=== PATIENT | male | born 1995 | race Caucasian/White ===

== ENCOUNTER 2022-10-13 20:47 | Inpatient (IN) | payer MEDICAID, OTHER ==
[~2022-10-13] VITALS: Ht 180.3 cm; Wt 68.8 kg
[2022-10-13 22:10] LABS: Basophils # (auto) 0.1 10 ^3/uL (0-0.2); Basophils % (auto) 0.6 % (0.0-2.0); Eosinophils # (auto) 0.1 10 ^3/uL (0-0.8); Eosinophils % (auto) 0.7 % (0.0-7.0); Hematocrit 48.5 % (41.0-53.0); Hemoglobin 17.1 g/dL (13.5-17.5); Lymphocytes # (auto) 1.9 10 ^3/uL (0.4-5.4); Lymphocytes % (auto) 17.6 % (10.0-50.0); Mean Corpuscular Hemoglobin 33.6 pg (28.0-32.0); Mean Corpuscular Hgb Conc. 35.2 g/dL (32.0-36.0); Mean Corpuscular Volume 95.5 fL (80.0-100.0); Monocytes # (auto) 0.7 10 ^3/uL (0-1.3); Neutrophils # (auto) 7.8 10 ^3/uL (1.6-8.6); Neutrophils % (auto) 74.1 % (37.0-80.0); Nucleated Red Blood Cells % 0.5 %; Red Blood Cells 5.07 10^6/uL (4.5-5.90); Red Cell Distribution Width 13.2 % (11.8-14.3); White Blood Cell 10.6 10^3/uL (4.4-10.8)
[2022-10-13 22:26] LABS: Urine Amorphous Crystal FEW /hpf (None Seen); Urine Bacteria FEW /hpf (None Seen); Urine Blood 3+ /uL (Negative); Urine Clarity HAZY (Clear); Urine Color Yellow (Yellow); Urine Mucus FEW (None Seen); Urine Protein, UAD 1+ (Negative); Urine Specific Gravity 1.019 (1.001-1.035); Urine WBC 15 /hpf (0 - 3); Urine pH 6.5 (5.0-8.0)
[2022-10-13 22:28] LABS: Alanine Aminotransferase 15 U/L (7-40); Albumin 5.1 g/dL (3.2-4.8); Alkaline Phosphatase 98 U/L (46-116); Anion Gap 7.6 (5-15); Aspartate Aminotransferase 13 U/L (13-40); BUN/Creatinine Ratio 10.1 (10.0-20.0); Bilirubin, Total 0.8 mg/dL (0.2-1.0); Blood Urea Nitrogen 9 mg/dL (9-23); Carbon Dioxide 28.4 mmol/L (20-30); Chloride 103 mmol/L (98-107); Glucose 129 mg/dL (74-106); Lipase 39 U/L (12-53); Potassium 4.1 mmol/L (3.5-5.1); Sodium 139 mmol/L (136-145)
[2022-10-14] MEDS ORDERED: ONDANSETRON HCL 4 MG/2 ML VIAL IV ONE
[2022-10-14] MEDS ORDERED: SODIUM CHLORIDE 0.9% 1,000 ML IV ONE
[2022-10-14] MEDS ORDERED: CEFTRIAXONE SODIUM 2 GM in D5W 5% 100 ML IV ONE ×2
[2022-10-14] MEDS ORDERED: MORPHINE SULFATE 4 MG/ML SYR/VIAL IV ONE
[2022-10-14 02:00] VITALS: PULSE 66; RESP 14; O2SAT 99
[2022-10-14] MEDS ORDERED: cefTRIAXone SOD 1,000 MG VL ONE (02:04)
[2022-10-14 03:00] VITALS: PULSE 70; RESP 18; O2SAT 94
[2022-10-14] MEDS ORDERED: ACETAMINOPHEN 325 MG TAB PO PRN (04:15)
[2022-10-14] MEDS ORDERED: HYDROcodone-ACET 5/325MG TAB PO PRN (04:15)
[2022-10-14] MEDS ORDERED: ONDANSETRON HCL 4 MG/2 ML VIAL IV PRN (04:15)
[2022-10-14] MEDS ORDERED: MORPHINE SULFATE INJ 2 MG/ml SYRG IV PRN (04:15)
[2022-10-14] MEDS: PANTOPRAZOLE 40 MG TAB PO SCH (09:50)
[2022-10-14] MEDS ORDERED: TAMSULOSIN HYDROCHLORIDE 0.4 MG CAP PO ONE (10:30)
[2022-10-14] MEDS: SODIUM CHLORIDE 0.9% 1,000 ML IV SCH ×3 (11:07→23:50)
[2022-10-14 22:43] VITALS: BP 121/83; PULSE 71; RESP 18; TEMP 98.8; O2SAT 96
[2022-10-15] MEDS ORDERED: cefTRIAXone 1GM/50ML D5W 50 ML IV SCH (02:00)
[2022-10-15 05:00] VITALS: BP 126/68; PULSE 64; RESP 16; TEMP 97.7; O2SAT 98
[2022-10-15 06:04] LABS: Basophils # (auto) 0 10 ^3/uL (0-0.2); Basophils % (auto) 0.6 % (0.0-2.0); Eosinophils # (auto) 0.1 10 ^3/uL (0-0.8); Eosinophils % (auto) 2.3 % (0.0-7.0); Hematocrit 45.1 % (41.0-53.0); Hemoglobin 15.6 g/dL (13.5-17.5); Lymphocytes # (auto) 2.2 10 ^3/uL (0.4-5.4); Lymphocytes % (auto) 41.4 % (10.0-50.0); Mean Corpuscular Hemoglobin 33.6 pg (28.0-32.0); Mean Corpuscular Hgb Conc. 34.6 g/dL (32.0-36.0); Mean Corpuscular Volume 97.1 fL (80.0-100.0); Monocytes # (auto) 0.3 10 ^3/uL (0-1.3); Monocytes % (auto) 6.5 % (0.0-12.0); Neutrophils # (auto) 2.6 10 ^3/uL (1.6-8.6); Neutrophils % (auto) 49.2 % (37.0-80.0); Nucleated Red Blood Cells % 0.1 %; Red Blood Cells 4.64 10^6/uL (4.5-5.90); Red Cell Distribution Width 13.3 % (11.8-14.3); White Blood Cell 5.3 10^3/uL (4.4-10.8)
[2022-10-15 06:10] LABS: Anion Gap 5.4 (5-15); Carbon Dioxide 27.6 mmol/L (20-30); Chloride 107 mmol/L (98-107); Potassium 4.3 mmol/L (3.5-5.1); Sodium 140 mmol/L (136-145)
[2022-10-15 06:11] LABS: Calcium 8.9 mg/dL (8.7-10.4)
[2022-10-15 06:15] LABS: Glucose 89 mg/dL (74-106)
[2022-10-15] MEDS: SODIUM CHLORIDE 0.9% 1,000 ML IV SCH ×2 (06:51→10:34)
[2022-10-15 07:43] LABS: BUN/Creatinine Ratio 16.5 (10.0-20.0); Blood Urea Nitrogen 13 mg/dL (9-23)
[2022-10-15 09:00] VITALS: BP 119/82; PULSE 63; RESP 18; TEMP 97.5; O2SAT 98
[2022-10-15] MEDS ORDERED: MANNITOL FTV 25% 12.5 GM/50 ML 50 ML IV ONE (09:45)
[2022-10-15] MEDS: PANTOPRAZOLE 40 MG TAB PO SCH (10:33)
[2022-10-15] MEDS ORDERED: NITR-87 PO (12:27)
[2022-10-15] MEDS ORDERED: TAMS-35 PO (12:27)
[2022-10-15 13:00] VITALS: BP 136/73; PULSE 82; RESP 19; TEMP 97.9; O2SAT 90
[2022-10-15] MEDS ORDERED: TAMSULOSIN HYDROCHLORIDE 0.4 MG CAP PO SCH (18:00)
== END 2022-10-15 15:00 | disposition home or self-care (01) | DRG 463 ==
LOC: ER 20:47 → OVERFLOW 10-14 04:18 → WEST WING 10-14 22:26
PROVIDERS: ADMIT Nurse Practitioner; ATTEND Nurse Practitioner Acute Care
DX: N13.6 Pyonephrosis (principal); E11.9 Type 2 diabetes mellitus without complications; F17.200 Nicotine dependence, unspecified, uncomplicated; Z88.8 Allergy status to other drugs, medicaments and biological substances; Z79.899 Other long term (current) drug therapy
CPT/HCPCS: 36415; 74176; 80048; 80053; 81001; 83690; 85025; 96361; 96365; G0378; J0696

== ENCOUNTER 2025-02-08 01:53 | Emergency (ER) | payer MEDICAID ==
[~2025-02-08] VITALS: Ht 180.3 cm; Wt 68.1 kg
[~2025-02-08 01:53] MED LIST: NITR-87 PO; TAMS-35 PO
[2025-02-08 02:00] VITALS: BP 130/98; PULSE 113; RESP 16; TEMP 98.4; O2SAT 97
--- NOTE | 2025-02-08 02:22 | ED.PDOC ---
History of Present Illness HPI Comments 29 year-old male presents to the ED via wheelchair for multiple abrasions to the body S/P falling into cactus minutes ago. Patient was brought into the ED by his mother. Patient presents with heavy ingestion of ETOH, no further symptoms at this time. REVIEW OF SYSTEMS: General: + ETOH intoxification. No fever, no chills, or fatigue HEENT: No sore throat, no earache, no congestion, no neck pain. Cardiac: No chest pain. No palpitations. Lungs: No shortness of breath, no cough. GI: No nausea, no vomiting, no diarrhea, no constipation, no abdominal pain : No dysuria, frequency, or urgency. No hematuria. Musculoskeletal: No joint pain , no joint swelling, no extremity edema. Skin: No rash, no itching. Neuro: No headache, no dizziness, no weakness (And as sated in HPI) PHYSICAL EXAM: General: Awake, alert and oriented. No acute distress. Skin: + cactus spines to the abdomen, back, bilateral lower extremities, bilateral upper extremities. Skin in warm, dry and intact. Appropriate color for ethnicity. HEENT: The head is normocephalic and atraumatic. Conjunctivae are clear without exudates or hemorrhage. Sclera is non-icteric. Eyelids are normal in appearance without swelling or lesions. Oral mucosa is pink and moist Neck: The neck is supple with normal range of motion. No JVD. Cardiac: Heart rate and rhythm are normal. No murmurs, gallops, or rubs are auscultated. Respiratory: No signs of respiratory distress. Lung sounds are clear in all lobes bilaterally without rales, rhonchi, or wheezes. Abdominal: Abdomen is soft, non-tender without distention, guarding or rigidity. Bowel sounds are present and normoactive in all four quadrants. Extremities: Lower extremities without edema. Neurological: The patient is awake, alert and oriented to person, place, and time with normal speech. Speech is clear. There is no facial asymmetry. Psychiatric: Appropriate mood and affect. Good judgement and insight. Chief Complaint: ETOH Time Seen by MD: 02:05 Reviewed Notes: Medications, Allergies Allergies: Coded Allergies: Naproxen (Verified Allergy, Unknown, 10/13/22) Penicillins (Verified Allergy, Unknown, 02/08/25) Home Meds Active Scripts Nitrofurantoin Monohydrate Mac (Macrobid) 100 Mg Cap, 100 MG PO BID for 5 Days, #10 CAP Prov:[facility] PRO[employer] 10/15/22 Tamsulosin Hcl (Flomax) 0.4 Mg Cap, 1 CAP PO DAILY, #7 CAP 11 Refills Prov:CAION[facility] [employer] 10/15/22 Information Source: Patient Mode of Arrival: Ambulatory Severity: Moderate Timing: Minutes Duration: Since onset Past Medical History PAST MEDICAL HISTORY: Denies Surgical History: Denies all surgeries Social History Smoker: Unknown Alcohol: Heavy Drugs: Unknown Lives In: Home Was a procedure done? Was a procedure done?: No Differential Dx Considerations may include: Puncture wound, abrasion, cellulitis, contact dermatitis X-Ray, Labs, Meds, VS Vital Signs Date Time Temp Pulse Resp B/P (MAP) Pulse Ox O2 Delivery O2 Flow Rate FiO2 02/08/25 02:00 98.4 113 16 130/98 97 98.4 Lab Test 02/08/25 02:17 Range/Units White Blood Count 11.4 H 4.4-10.8 10^3/uL Red Blood Count 5.42 4.5-5.90 10^6/uL Hemoglobin 17.8 H 13.5-17.5 g/dL Hematocrit 51.4 41.0-53.0 % Mean Corpuscular Volume 94.8 80.0-100.0 fL Mean Corpuscular Hemoglobin 32.8 H 28.0-32.0 pg Mean Corpuscular Hemoglobin Concent 34.6 32.0-36.0 g/dL Red Cell Distribution Width 13.6 11.8-14.3 % Platelet Count 190 140-450 10^3/uL Mean Platelet Volume 7.6 6.9-10.8 fL Neutrophils (%) (Auto) 63.8 37.0-80.0 % Lymphocytes (%) (Auto) 26.3 10.0-50.0 % Monocytes (%) (Auto) 6.8 0.0-12.0 % Eosinophils (%) (Auto) 2.6 0.0-7.0 % Basophils (%) (Auto) 0.5 0.0-2.0 % Neutrophils # (Auto) 7.2 1.6-8.6 10 ^3/uL Lymphocytes # (Auto) 3.0 0.4-5.4 10 ^3/uL Monocytes # (Auto) 0.8 0-1.3 10 ^3/uL Eosinophils # (Auto) 0.3 0-0.8 10 ^3/uL Basophils # (Auto) 0.1 0-0.2 10 ^3/uL Nucleated Red Blood Cells 0.1 % Sodium Level 147 H 136-145 mmol/L Potassium Level 3.2 L 3.5-5.1 mmol/L Chloride Level 114 H 98-107 mmol/L Carbon Dioxide Level 23 20-31 mmol/L Anion Gap 10 5-15 Blood Urea Nitrogen 8 L 9-23 mg/dL Creatinine 0.79 0.700-1.30 mg/dL Glomerular Filtration Rate Calc 123 >90 mL/min BUN/Creatinine Ratio 10.1 10.0-20.0 Serum Glucose 132 H 74-106 mg/dL Calcium Level 9.2 8.7-10.4 mg/dL Plasma/Serum Blood Alcohol 421.3 *H <10 mg/dL SEPSIS Sepsis Screen Date sepsis recognized/suspect: Feb 08, 2025 Time Sepsis recognized/suspect: 020 Recent Procedure: No On Antibiotic Therapy: No Respiratory Rate >20: No Heart Rate >90: Yes Temp<36 C (96.8 F) or >38.3 C: No SBP <90 or MAP <65 mmHG: No New Acute Mental Status Change: No Is the patient on CPAP, BIPAP,: No Vital Signs Date Time Temp Pulse Resp B/P (MAP) Pulse Ox O2 Delivery O2 Flow Rate FiO2 02/08/25 02:00 98.4 113 16 130/98 97 98.4 Laboratory Tests Test 02/08/25 02:17 White Blood Count 11.4 10^3/uL (4.4-10.8) H Departure 1 Departure Time of Disposition: 05:12 Impression: Primary Impression: Alcohol intoxication Additional Impressions: Doss dermatitis Abrasion Disposition: HOME / SELF CARE / HOMELESS Condition: Stable Additional Instructions: ED DISCHARGE INSTRUCTIONS Instructions: Please read all instructions provided in this packet carefully. Although you have been discharged from the Emergency Department, this does not mean that you have a "clean bill of health". No definitive diagnosis for your symptoms has been made today. It is possible that you are in the process of developing a serious illness. This is why you must return to the ED without fail if any new or worsening symptoms (especially if your symptoms include severe pain, redness or itching of the skin, chest pain, trouble breathing, abdominal pain, fever, headache, confusion, trouble seeing, or trouble walking) It is also very important that you see a primary care provider (PCP) within the next 3 days to follow up. If you are unable to get an appointment, return to the ED for re-evaluation of your skin within 3 days. Scrapes (Abrasions): Care Instructions Scrapes (abrasions) are wounds where your skin has been rubbed or torn off. Most scrapes do not go deep into the skin, but some may remove several layers of skin. Scrapes usually don't bleed much, but they may ooze pinkish fluid. Scrapes on the head or face may appear worse than they are. They may bleed a lot because of the good blood supply to this area. Most scrapes heal well and may not need a bandage. They usually heal within 3 to 7 days. A large, deep scrape may take 1 to 2 weeks or longer to heal. A scab may form on some scrapes. Follow-up care is a navarro part of your treatment and safety. Be sure to make and go to all appointments, and call your doctor if you are having problems. It's also a good idea to know your test results and keep a list of the medicines you take. How can you care for yourself at home? If your doctor told you how to care for your wound, follow your doctor's instructions. If you did not get instructions, follow this general advice: Wash the scrape with clean water 2 times a day. Don't use hydrogen peroxide or alcohol, which can slow healing. You may cover the scrape with a thin layer of petroleum jelly, such as Vaseline, and a nonstick bandage. Apply more petroleum jelly and replace the bandage as needed. Prop up the injured area on a pillow anytime you sit or lie down during the next 3 days. Try to keep it above the level of your heart. This will help reduce swelling. Be safe with medicines. Take pain medicines exactly as directed. If the doctor gave you a prescription medicine for pain, take it as prescribed. If you are not taking a prescription pain medicine, ask your doctor if you can take an [id number] medicine. When should you call for help? Call your doctor now or seek immediate medical care if: You have signs of infection, such as: Increased pain, swelling, warmth, or redness around the scrape. Red streaks leading from the scrape. Pus draining from the scrape. A fever. The scrape starts to bleed, and blood soaks through the bandage. Oozing small amounts of blood is normal. Watch closely for changes in your health, and be sure to contact your doctor if the scrape is not getting better each day. Credits for Scrapes (Abrasions): Care Instructions Current as of: November 17, 2024 Author: [employer] Staff Clinical Review Board All [employer] education is reviewed by a team that includes physicians, nurses, advanced practitioners, registered dieticians, and other healthcare professionals. e-Prescriptions Bacitracin Zinc (Bacitracin) 500 Unit/Gm Oin 500 UNIT EX BID for 7 Days, #14 OIN Prov: JAZMINE REMY MD 02/08/25 Comments 29-year-old male who presents to the emergency department with multiple cactus spines imbedded in the skin. Spines were removed. Glucocorticoid and tetanus administered. Patient discharged home with friend Leatha. He has been able to ambulate around the emergency department without difficulty. He is advised to return to the emergency department with any new, worsening or concerning symptoms. He is advised to return to the emergency department for re-evaluation of the skin within 3 days if he is unable to get an appointment with his primary care provider. Critical Care Note Critical Care Time?: No Stability Stability form required: No Heart Score Heart Score: Heart Score Response (Comments) Value History N/A 0 EKG N/A 0 Age N/A 0 Risk Factors N/A 0 Troponin N/A 0 Total 0 I personally scribed for JAMZINE REMY MD ([email or web address]) on 02/08/25 at 02:22. Electronically submitted by Ifeoma De La Rosa ([employer]). JAZMINE REMY MD Feb 08, 2025 02:22
[2025-02-08 04:10] LABS: Anion Gap 10 (5-15); Calcium 9.2 mg/dL (8.7-10.4); Carbon Dioxide 23 mmol/L (20-31)
[2025-02-08 04:14] LABS: Chloride 114 mmol/L (98-107); Potassium 3.2 mmol/L (3.5-5.1); Sodium 147 mmol/L (136-145)
[2025-02-08 04:15] LABS: BUN/Creatinine Ratio 10.1 (10.0-20.0)
[2025-02-08 04:16] LABS: Blood Urea Nitrogen 8 mg/dL (9-23); Glucose 132 mg/dL (74-106)
[2025-02-08 04:20] LABS: Hematocrit 51.4 % (41.0-53.0); Hemoglobin 17.8 g/dL (13.5-17.5); Mean Corpuscular Hemoglobin 32.8 pg (28.0-32.0); Mean Corpuscular Volume 94.8 fL (80.0-100.0); Nucleated Red Blood Cells % 0.1 %
[2025-02-08] MEDS ORDERED: BACI-5 EX (05:14)
[2025-02-08] MEDS: TETANUS-DIPTH-ACEL PERTUSSIS 0.5ML SYR Tdap IM ONE (05:40)
== END 2025-02-08 05:55 | disposition home or self-care (01) ==
LOC: ER 01:53
DX: T14.8XXA Other injury of unspecified body region, initial encounter (principal); F10.129 Alcohol abuse with intoxication, unspecified; L30.9 Dermatitis, unspecified; Z79.899 Other long term (current) drug therapy; Z88.6 Allergy status to analgesic agent; Z88.0 Allergy status to penicillin; X58.XXXA Exposure to other specified factors, initial encounter; Y93.89 Activity, other specified; Y92.89 Other specified places as the place of occurrence of the external cause; Y99.8 Other external cause status; Y90.8 Blood alcohol level of 240 mg/100 ml or more
CPT/HCPCS: 36415; 80048; 80320; 85025